=== PATIENT | female | born 1965 | race Caucasian/White ===

== ENCOUNTER 2022-03-01 20:40 | Emergency (ER) | payer SELFPAY ==
[2022-03-01 21:00] VITALS: BP 133/70; PULSE 89; RESP 19; TEMP 99.1; BMI 26.9
[2022-03-01] MEDS ORDERED: DEXAMETHASONE SOD PHOSPHATE 10 MG/1 ML VIAL IM ONE (22:10)
[2022-03-01] MEDS ORDERED: DEXAMETHASONE SOD PHOSPHATE 4 MG/1 ML VIAL ONE (23:10)
== END 2022-03-02 00:19 | disposition home or self-care (01) ==
LOC: JER 20:40
PROC: 3E0233Z Introduction of Anti-inflammatory into Muscle, Percutaneous Approach (ICD-10-PCS; principal; 2022-03-01)
DX: J20.5 Acute bronchitis due to respiratory syncytial virus (principal); R05.1 Acute cough
CPT/HCPCS: 0241U-QW; 71046-TC-FY; 87651; 99284-25; J1100

== ENCOUNTER 2022-03-23 23:08 | Emergency (ER) | payer OTHER ==
[2022-03-23 23:27] VITALS: BP 111/70; PULSE 61; RESP 20; TEMP 98.7; BMI 26.5
[2022-03-24] MEDS ORDERED: ACETAMINOPHEN 325 MG TABLET (FP) PO ONE (01:37)
[2022-03-24] MEDS ORDERED: ACETAMINOPHEN 325 MG TABLET (FP) ONE (02:22)
[2022-03-24 03:02] LABS: BASO % 0.6 % (0-2.0); EOS % 6.3 % (0-4.5); HEMATOCRIT 38.5 % (32.4-45.2); HEMOGLOBIN 12.7 GM/dL (10.7-15.3); LYMPH % 29.8 % (8-40); MCH 28.4 pg (25.7-33.7); MCHC 32.9 g/dl (32.0-36.0); MEAN CELL VOLUME 86.3 fl (80-96); MEAN PLT VOLUME 7.6 fl (7.5-11.1); NEUT % 55.3 % (42.8-82.8); PLATELET COUNT 295 10^3/uL (134-434); RBC 4.46 M/mm3 (3.60-5.2); RDW 14.4 % (11.6-15.6); WHITE BLOOD COUNT 5.9 K/mm3 (4.0-10.0)
[2022-03-24 03:26] LABS: ALBUMIN 3.7 g/dl (3.4-5.0); CALCIUM 8.9 mg/dL (8.5-10.1)
[2022-03-24 03:29] LABS: CREATININE 0.9 mg/dL (0.55-1.3)
[2022-03-24 03:31] LABS: BILIRUBIN,TOTAL 0.2 mg/dL (0.2-1); TOT PROT 7.4 g/dl (6.4-8.2)
== END 2022-03-24 04:36 | disposition home or self-care (01) ==
LOC: JER 23:08
DX: R07.89 Other chest pain (principal)
CPT/HCPCS: 36415; 71046-TC-FY; 80053; 84484; 85025; 85379; 93005; 93010; 99285-25